=== PATIENT | female | born 1940 | race Caucasian/White ===

== ENCOUNTER 2018-06-04 05:57 | Observation (INO) | payer MEDICARE, BC ==
[2018-06-04] MEDS ORDERED: Aspirin 325 MG TAB ONE (06:23)
[2018-06-04] MEDS ORDERED: Nitroglycerin 2% Ointment 1 INCH/1 GM Packet ONE (06:23)
[2018-06-04 06:27] LABS: #Basophils 0.1 thou/uL (0.0-0.2); #Eosinphils 0.1 thou/uL (0.0-0.7); #Lymphocytes 2.4 thou/uL (1.20-3.40); #Monocytes 0.5 thou/uL (0.11-0.59); #Neutrophils 5.5 thou/uL (1.40-6.50); %Basophils 0.7 % (0.0-1.0); %Eosinophils 1.3 % (0.0-10.0); %Lymphocytes 28.4 % (21.0-51.0); %Monocytes 5.4 % (0.0-10.0); %Neutrophils 64.2 % (42.0-75.0); Hemoglobin 16.3 g/dL (12.0-16.0); Mean Corpuscular HGB CONC 32.1 g/dL (32.0-36.0); Mean Corpuscular Hemoglobin 31.2 pg (27.0-31.0); Mean Corpuscular Volume 97.2 fL (78.0-98.0); Mean Platelet Volume 8.8 fL (7.4-10.4); Platelet Count 170 thou/uL (130-400); RBC Distribution Width 11.7 % (11.5-14.5); Red Blood Cell (RBC) Count 5.22 mill/uL (4.20-5.40); White Blood Cell (WBC) Count 8.5 thou/uL (4.8-10.8)
[2018-06-04 06:51] LABS: ALT (SGPT) 12 U/L (8-55); AST (SGOT) 21 U/L (5-34); Albumin 4.3 g/dL (3.4-4.8); Alkaline Phosphatase 91 U/L (40-150); Anion Gap 15 mmol/L (10-20); BUN (Urea Nitrogen) 13 mg/dL (9.8-20.1); Bilirubin, Total 0.5 mg/dL (0.2-1.2); CK (CPK) 50 U/L (29-168); Calc. Creatinine Clearance 0 mL/min (70-130); Calcium 9.4 mg/dL (7.8-10.44); Carbon Dioxide 24 mmol/L (23-31); Chloride 102 mmol/L (98-107); Estimated GFR-MDRD 67; Globulin 3.8 g/dL (2.4-3.5); Glucose 134 mg/dL (83-110); Lipase 24 U/L (8-78); Potassium 4.3 mmol/L (3.5-5.1); Protein, Total 8.1 g/dL (6.0-8.3); Sodium 137 mmol/L (136-145)
[2018-06-04 06:52] LABS: CKMB 0.6 ng/mL (0-6.6); Troponin I Less than 0.010 ng/mL (< 0.028)
[2018-06-04] MEDS ORDERED: Ondansetron PF 4 MG/2 ML Vial ONE (07:12)
--- NOTE | 2018-06-04 07:45 | RAD ---
PORTABLE FRONTAL CHEST RADIOGRAPH: DATE: 06/04/2018. COMPARISON: None. HISTORY: Chest pain and upper abdominal pain. FINDINGS: There is no pneumothorax, pleural fluid, focal consolidation, or alveolar edema. There is atheroscle rotic calcification of the aortic arch. IMPRESSION: No acute findings. POS: SATINDERH
[2018-06-04 10:41] LABS: Troponin I Less than 0.010 ng/mL (< 0.028)
[2018-06-04] MEDS ORDERED: Zolpidem Tartrate 5 MG TAB PO PRN (13:31)
[2018-06-04] MEDS ORDERED: Acetaminophen 325 MG TAB PO PRN (13:31)
[2018-06-04] MEDS ORDERED: Ondansetron PF 4 MG/2 ML Vial IVP PRN (13:31)
[2018-06-04] MEDS ORDERED: Ondansetron ODT 4 MG TAB PO PRN (13:31)
[2018-06-04 13:56] LABS: Troponin I Less than 0.010 ng/mL (< 0.028)
[2018-06-04 14:17] VITALS: BMI 30.1
--- NOTE | 2018-06-04 20:05 | HP ---
DATE OF ADMISSION: 06/04/2018 ADMITTING PHYSICIAN: Todd Patton M.D. HISTORY OF PRESENT ILLNESS: The patient is a 77-year-old white female who presented to emergency allie complaining of left-sided retrosternal and lower right-sided back pain. Patient states she was awo pj this morning with this pain. She noted no fever, no nausea, vomiting, diarrhea, no prior history of chest pain or shortness of breath. She was brought to the emergency room by private car. She wa s seen and evaluated in the ER, initial studies did not reveal any evidence of acute coronary syndrom e; however, she was found to be hypertensive. She received one inch of nitro paste. Her blood press ure was controlled. She noted improvement in her chest pain with the nitro paste. It was noted she had one episode of vomiting while in the emergency room. She has had no prior history of atherosclerotic coronary artery disease, although there is a distant family history of such. She was recently , which she does not note any particular problem wit h severe anxiety, otherwise. Cardiac enzymes as far have been negative. She is resting comfortably in bed. Otherwise, no other m edical complaints are noted. ALLERGIES: She has no known allergies. CURRENT MEDICATIONS: None. PAST MEDICAL HISTORY: Negative for atherosclerotic coronary artery disease, diabetes, thyroid diseas e, renal disease, pulmonary disease. SURGICAL HISTORY: Positive only for appendectomy. SOCIAL AND PERSONAL HISTORY: She is a recent . She does not smoke, drinks alcohol very infrequ ently. FAMILY HISTORY: Positive for atherosclerotic coronary disease in her father who at a very young age. Her cholesterol status is unknown at this time. PHYSICAL EXAMINATION: VITAL SIGNS: Temperature 98.4, pulse 78 and regular, BP 130/64, O2 saturation is 97%. GENERAL: She is alert, active, in no acute distress. HEENT: Normocephalic, atraumatic. Extraocular muscles intact. Conjunctivae clear. NECK: Supple, full range of motion, no bruits auscultated. Thyroid midline. No thyromegaly or thyr oid masses. LUNGS: Clear. HEART: Regular rate and rhythm without murmurs, gallops or rubs. ABDOMEN: Soft, nontender, bowel sounds are present and active. There is no hepatosplenomegaly noted . There is not any rebound or guarding otherwise noted at this time. LABORATORY DATA: Her hemoglobin 16.3, hematocrit 50.7. Serial cardiac enzymes are negative x3. Shaina st x-ray is clear. EKG is prominent for a right bundle branch block, some bifascicular block. She s tates she may have had this previously, although she was told one time she may have had some problems with EKG, but has never seen a mercury recoverer in the past. IMPRESSION: A 77-year-old female with a right-sided chest pain that could be consistent with angina due to the fact that it was improved with nitroglycerin. She also had acute hypertensive reaction du e to her chest pain. PLAN: 1. We will go ahead and obtain a Cardiolite stress test. 2. I have asked for Cardiology consult to be sure the stress test is appropriate in this patient. I have discussed the findings with the patient and her family. She is agreeable to further testing.
--- NOTE | 2018-06-05 00:40 | CON ---
DATE OF CONSULTATION: 06/04/2018 HISTORY: Debi Henriquez is a pleasant 77-year-old white female who denies any previous cardiac problems. She awoke at 4:30 this morning with pressure on the right axillary area of her chest extending to the lower costal margin to the center of her chest. This ws a pressure. It was not pleuritic in nature. She denied any nausea, vomiting, diaphoresis or shortness of breath with this. This pain did not resolve and ultimately she called her daughter who brought her to the emergency room. She was given aspirin 324 mg, topical nitrates and intravenous Zofran. Her pain resolved at approximately 8:00 a.m., total duration of 3-1/2 hours. The pain was continuous during that time. PAST MEDICAL HISTORY: She denies any history of hypertension, diabetes, or hyperlipidemia. OPERATIONS: Appendectomy, tonsillectomy, cataract surgery. MEDICATIONS: Multivitamin, calcium pill. ALLERGIES: None. SOCIAL HISTORY: She does not smoke. She occasionally drinks wine. FAMILY HISTORY: Father had myocardial infarction and suddenly . REVIEW OF SYSTEMS: Ten-point review of systems unremarkable. PHYSICAL EXAMINATION: VITAL SIGNS: Blood pressure 130/64, pulse is 61. HEENT: PERRL. NECK: Supple. CHEST: Clear. CARDIAC: S1 and S2 are normal without any S3, S4 or murmurs. ABDOMEN: Normal bowel sounds without tenderness. There is no right upper quadrant tenderness. EXTREMITIES: Revealed no clubbing, cyanosis or edema. NEUROLOGIC: Grossly intact. SKIN: Warm and dry. MUSCULOSKELETAL: Revealed no palpable right chest or right axillary tenderness. LABORATORY AND X-RAY FINDINGS: EKG reveals normal sinus rhythm with incomplete right bundle branch block, left anterior fascicular block. Cardiac enzymes x3 are normal. Sodium 137, potassium 4.3, chloride 102, carbon dioxide 24, BUN 13 , creatinine 0.83. Alkaline phosphatase, AST, and ALT are all normal. Lipase is normal. Hemoglobin 16.3, hematocrit 50.7, white count 8500, platelets 170, 000. IMPRESSION: 1. Atypical chest discomfort - 3-1/2 hours of continual chest pain with negative cardiac enzymes. 2. Positive family history. PLAN: The patient will undergo Cardiolite testing to further evaluate. Her pain does not appear to be cardiac in nature at this time. [facility]PITALKwasi
[2018-06-05] MEDS ORDERED: Enoxaparin Sodium 30 MG/0.3 ML SYRINGE SC SCH (09:00)
[2018-06-05] MEDS ORDERED: Aspirin 325 MG TAB PO SCH (09:00)
[2018-06-05 11:57] VITALS: BP 130/66; TEMP 97.5
--- NOTE | 2018-06-05 12:23 | NM ---
CARDIAC SPECT: CLINICAL HISTORY: 77-year-old female with chest pain. TECHNIQUE: A myocardial perfusion scan was performed using the single isotope one day protocol with technetium-9 9m sestamibi. 11 mCi were injected intravenously for the rest exam followed by 31 mCi for the stress exam. Exercise stress was monitored and interpreted by Josué Arias NP. FINDINGS: Homogeneous tracer distribution is seen in the myocardial segments on stress and rest images without fixed or reversible defects. GATED SPECT LVEF: 82%. WALL MOTION EXAM: Normal. IMPRESSION: Normal myocardial perfusion scan. POS: SERENE
--- NOTE | 2018-06-05 13:08 | DIS ---
PROGRESS/DISCHARGE NOTE DATE OF SERVICE: 06/05/2018 SUBJECTIVE: Ms. Henriquez is doing well today. She underwent a stress test which was completely normal. She reports no medical complaints or problems at this time. OBJECTIVE: Vital Signs: Temperature 97.5, BP 130/60. Lungs: Clear. Heart: Reveals a regular rate and rhythm without murmurs, gallops, or rubs. Nuclear stress test is normal. No evidence of any myocardial perfusion defects. DISCHARGE NOTE The patient came in with chest pain yesterday that was fairly atypical, but nonetheless did have some risk factor. She underwent cardiac stress test that was normal. She will be discharged home today. She has been advised to take 1 aspirin daily. Otherwise, she will follow up in 4-6 weeks.
== END 2018-06-05 13:14 | disposition home or self-care (01) ==
LOC: ERS 05:57 → ERHOLD 07:59 → 2SW 12:27
PROVIDERS: ADMIT Family Medicine; ATTEND Family Medicine
DX: R07.89 Other chest pain (principal); Z79.899 Other long term (current) drug therapy; Z82.49 Family history of ischemic heart disease and other diseases of the circulatory system
CPT/HCPCS: 71045; 78452; 80053; 82550; 82553; 83690; 84484 ×2; 85025; 93005; 93017; 94760; 96374; 99285; A9500; G0378 ×2; 36415; J2405

== ENCOUNTER 2018-07-28 06:34 | Outpatient (CLI) | payer MEDICARE, BC ==
[2018-07-28 13:24] LABS: #Eosinphils 0.1 thou/uL (0.0-0.7); #Lymphocytes 2.5 thou/uL (1.20-3.40); #Monocytes 0.5 thou/uL (0.11-0.59); #Neutrophils 3.8 thou/uL (1.40-6.50); %Basophils 0.6 % (0.0-1.0); %Eosinophils 1.6 % (0.0-10.0); %Lymphocytes 36.2 % (21.0-51.0); %Monocytes 6.8 % (0.0-10.0); %Neutrophils 54.8 % (42.0-75.0); Mean Corpuscular HGB CONC 33.6 g/dL (32.0-36.0); Mean Corpuscular Hemoglobin 32.6 pg (27.0-31.0); Mean Corpuscular Volume 97.2 fL (78.0-98.0); Mean Platelet Volume 9.5 fL (7.4-10.4); Platelet Count 147 thou/uL (130-400); RBC Distribution Width 11.9 % (11.5-14.5); Red Blood Cell (RBC) Count 4.61 mill/uL (4.20-5.40); White Blood Cell (WBC) Count 6.9 thou/uL (4.8-10.8)
[2018-07-28 13:38] LABS: ALT (SGPT) 14 U/L (8-55); AST (SGOT) 19 U/L (5-34); Albumin 4.2 g/dL (3.4-4.8); Alkaline Phosphatase 94 U/L (40-150); Anion Gap 12 mmol/L (10-20); BUN (Urea Nitrogen) 14 mg/dL (9.8-20.1); Bilirubin, Direct 0.3 mg/dL (0.1-0.3); Bilirubin, Total 0.7 mg/dL (0.2-1.2); Calc. Creatinine Clearance 0 mL/min (70-130); Calcium 9.3 mg/dL (7.8-10.44); Carbon Dioxide 26 mmol/L (23-31); Chloride 104 mmol/L (98-107); Estimated GFR-MDRD 69; Glucose 93 mg/dL (83-110); Potassium 4.3 mmol/L (3.5-5.1); Protein, Total 7.6 g/dL (6.0-8.3); Sodium 138 mmol/L (136-145)
== END 2018-07-28 06:35 | disposition home or self-care (01) ==
LOC: LABBT 06:34
PROVIDERS: ATTEND Surgery
DX: Z01.812 Encounter for preprocedural laboratory examination (principal); K80.20 Calculus of gallbladder without cholecystitis without obstruction
CPT/HCPCS: 80048; 80076; 85025

== ENCOUNTER 2018-07-29 10:53 | Day surgery (SDC) | payer MEDICARE, BC ==
[2018-07-28 12:06] VITALS: BMI 29.9
[2018-07-29] MEDS ORDERED: CEFAZOLIN 2 GM/50 ML BAG ONE (11:42)
[2018-07-29] MEDS ORDERED: Bupivacaine/Epinephrine 0.25% 30 ML VIAL ONE (12:30)
[2018-07-29] MEDS ORDERED: Fentanyl 250 MCG/5 ML VIAL ONE (12:39)
[2018-07-29] MEDS ORDERED: SUGAMMADEX SODIUM 200 MG/2 ML VIAL ONE ×2 (13:30→13:36)
[2018-07-29] MEDS ORDERED: Lidocaine 1% PF 5 ML VIAL ONE (14:32)
[2018-07-29] MEDS ORDERED: Ondansetron PF 4 MG/2 ML Vial ONE (14:32)
[2018-07-29] MEDS ORDERED: PROPOFOL 200 MG/20 ML VIAL ONE (14:32)
[2018-07-29] MEDS ORDERED: Glycopyrrolate 0.2 MG/ML 5 ML SYRINGE ONE (14:32)
[2018-07-29] MEDS ORDERED: Metoclopramide HCl 10 MG/2 ML VIAL ONE (14:32)
[2018-07-29] MEDS ORDERED: Ketorolac Tromethamine 30 MG/ML VIAL ONE (14:32)
[2018-07-29] MEDS ORDERED: traMADol HCl 50 MG TAB ONE (15:43)
--- NOTE | 2018-07-29 17:22 | OP ---
DATE OF PROCEDURE: 07/29/2018 PREOPERATIVE DIAGNOSIS: Symptomatic gallstones. POSTOPERATIVE DIAGNOSIS: Symptomatic gallstones. PROCEDURE PERFORMED: Laparoscopic cholecystectomy. ANESTHESIA: General. ESTIMATED BLOOD LOSS: Minimal. COMPLICATION: None. SPECIMENS: Gallbladder. FINDINGS: Chronic cholecystitis. PROCEDURE IN DETAIL: The patient was taken to the operating room and laid supine on the operating room table. After general anesthetic was obtained, the abdomen was prepped and draped in a sterile fashion. A curved incision was made below the umbilicus. Cautery was used to dissect down to the umbilical fascia. Umbilical fascia was incised and held up using a Maria C. The abdominal cavity was entered using a Carey clamp. Holding stitch of Vicryl was placed on each side of the fascia. Rico trocar was placed. High-flow pneumoperitoneum was obtained. An upper midline 5 mm port and 2 right upper quadrant 5 mm ports were placed under direct camera visualization. The gallbladder was retracted from the gallbladder fossa. The peritoneum of the gallbladder was opened anteriorly and posteriorly. The critical view triangle was seen showing only the cystic duct and cystic artery branching from medial to lateral. There were no other branching structures. Two clips were placed proximally on the cystic duct and one laterally. It was cut using laparoscopic scissors. The cystic artery was taken in the same way. Electrocautery was then used to dissect the gallbladder out of the gallbladder fossa. The gallbladder was placed in an Endo catch bag and brought out through the Rico. There was no bleeding or bile in the liver bed. The cystic duct stump and cystic artery stump were intact, without evidence of extravasation or bleeding. All port sites were infiltrated using local anesthesia. All ports were removed under camera visualization. Pneumoperitoneum was let down. The Vicryl was used to close the fascial defect below the umbilicus. All incisions were irrigated and closed using 4-0 Monocryl and Dermabond. The patient was en route to Recovery in stable condition. All instrument counts, needle counts and lap counts were correct. Job ID: [id number]
== END 2018-07-29 16:30 | disposition home or self-care (01) ==
LOC: SDC 10:53
PROVIDERS: ATTEND Surgery
PROC: 0FT44ZZ Resection of Gallbladder, Percutaneous Endoscopic Approach (ICD-10-PCS; principal; 2018-07-29)
DX: K80.10 Calculus of gallbladder with chronic cholecystitis without obstruction (principal); Z79.82 Long term (current) use of aspirin; Z79.899 Other long term (current) drug therapy
CPT/HCPCS: 88304; J1885; J2001; J2405; J2704; J2765; J3010

== ENCOUNTER 2023-07-07 05:11 | Emergency (ER) | payer MEDICARE, BC ==
[2023-07-07] MEDS ORDERED: predniSONE 20 MG TAB ONE (05:44)
[2023-07-07 06:39] LABS: SARS-CoV-2 NAA Rapid Test Not Detected (NotDetected)
== END 2023-07-07 06:51 | disposition home or self-care (01) ==
LOC: ERS 05:11
DX: J10.1 Influenza due to other identified influenza virus with other respiratory manifestations (principal)
CPT/HCPCS: 0240U; 71045; J7512

== ENCOUNTER 2025-05-11 13:49 | Outpatient (CLI) | payer MEDICARE, BC | END 2025-05-11 13:50 | disposition home or self-care (01) | LOC: SCSBT 13:49 | PROVIDERS: ATTEND Family Medicine | DX: Z78.0 Asymptomatic menopausal state (principal); M81.0 Age-related osteoporosis without current pathological fracture | CPT/HCPCS: 77080 ==